=== PATIENT | male | born 1985 | race African-American/Black ===

== ENCOUNTER 2024-05-09 21:01 | Emergency (ER) | payer OTHER ==
[~2024-05-09] VITALS: Ht 165.1 cm; Wt 68.1 kg
[2024-05-09 22:55] VITALS: BP 139/89; PULSE 74; RESP 16; TEMP 98.1; O2SAT 98
[2024-05-09] MEDS: IBUPROFEN 800 MG TAB PO ONE (22:55)
== END 2024-05-09 23:38 | disposition home or self-care (01) ==
LOC: ER 21:01 → EEVIPCON 21:01 → ER 23:38
DX: S93.491A Sprain of other ligament of right ankle, initial encounter (principal); Z88.0 Allergy status to penicillin; X50.1XXA Overexertion from prolonged static or awkward postures, initial encounter; Y93.67 Activity, basketball; Y92.89 Other specified places as the place of occurrence of the external cause; Y99.8 Other external cause status
CPT/HCPCS: 29515; 73610